=== PATIENT | male | born 1985 | race Caucasian/White ===

== ENCOUNTER 2016-05-07 20:29 | Emergency (ER) | payer OTHER ==
[~2016-05-07 20:29] MED LIST: AUGMENTIN875 M1 PO; LEVAQUIN750 M1 PO; NO MEDICATIONS
== END 2016-05-07 22:45 | disposition home or self-care (01) ==
LOC: CED 20:29
DX: T40.1X1A Poisoning by heroin, accidental (unintentional), initial encounter (principal); F11.10 Opioid abuse, uncomplicated; F17.200 Nicotine dependence, unspecified, uncomplicated; Z79.2 Long term (current) use of antibiotics
CPT/HCPCS: 99282

== ENCOUNTER 2016-06-18 03:31 | Emergency (ER) | payer OTHER ==
[2016-06-18 10:31] LABS: CULTURE INDICATED? YES; URINE APPEARANCE TURBID; URINE BACTERIA AUWI NEG (NEGATIVE); URINE BLOOD TRACE (NEG); URINE COLOR DK YELLOW; URINE GLUCOSE NEG (NEG); URINE KETONE TRACE (NEG); URINE LEUKOCYTE ESTERASE 3+ (NEG); URINE NITRATE NEG (NEG); URINE PROTEIN TRACE (NEG); URINE SOURCE CLEAN CATCH; URINE SPECIFIC GRAVITY 1.031 (1.003-1.035); URINE SQUAMOUS EPITHELIAL CELL NONE SEEN /[HPF]; UWBCS1 AUWI 200-300 (0-5)
[2016-06-18 10:33] LABS: URINE BILIRUBIN NEG (NEG)
[2016-06-20 02:20] LABS: CHLAMYDIA TRACH Not Detected (Not Detected); N GONOR Detected (Not Detected)
== END 2016-06-18 04:44 | disposition home or self-care (01) ==
LOC: CED 03:31
PROVIDERS: Physician Assistant
DX: N34.1 Nonspecific urethritis (principal); Z20.2 Contact with and (suspected) exposure to infections with a predominantly sexual mode of transmission; F17.200 Nicotine dependence, unspecified, uncomplicated; Z98.890 Other specified postprocedural states
CPT/HCPCS: 81003; 87086; 87491; 87591; 96372; 99283; J0696